=== PATIENT | female | born 1960 | race Caucasian/White ===

== ENCOUNTER → 2017-02-01 | Outpatient (CLI) | payer OTHER | LOC: FIMAGING 07:30 | PROVIDERS: ATTEND Physician Assistant | DX: Z12.31 Encounter for screening mammogram for malignant neoplasm of breast (principal); Z80.3 Family history of malignant neoplasm of breast | CPT/HCPCS: G0202 ==

== ENCOUNTER 2017-03-11 07:56 | Emergency (ER) | payer OTHER ==
[2017-03-11 08:02] VITALS: RESP 16; TEMP 98.2
--- NOTE | 2017-03-11 08:15 | EDPHY ---
H & P Stated Complaint: N/V/D Time Seen by Provider: 03/11/17 08:04 Source: Patient Exam Limitations: No limitations - Personal History LMP (Females 10-55): Post Menopausal Current Tetanus Diphtheria and Acellular Pertussis (TDAP): Yes - Medical/Surgical History Hx Asthma: No Hx Chronic Respiratory Disease: No Hx Diabetes: No Hx Cardiac Disease: No Hx Renal Disease: No Hx Cirrhosis: No Hx Alcoholism: No Hx HIV/AIDS: No Hx Splenectomy or Spleen Trauma: No Other PMH: DDD, HYPOTHYROID, DMII - Social History Smoking Status: Never smoked Constitutional: Initial Vital Signs Temperature (C) 36.8 C 03/11/17 07:57 Heart Rate 107 H 03/11/17 07:57 Respiratory Rate 16 03/11/17 07:57 Blood Pressure 125/90 H 03/11/17 07:57 O2 Sat (%) 92 03/11/17 07:57 O2 Delivery Mode Room Air Allergies/Adverse Reactions: No Known Allergies Allergy (Unverified 01/23/12 13:03) Home Medications: Medication Instructions Recorded Oxycodone 02/24/14 Oxycontin 02/24/14 Percocet 5/325 (RX) 02/24/14 Synthroid 02/24/14 Dapagliflozin Propanediol [Farxiga] 03/11/17 Medical Decision Making ED Course/Re-evaluation: CHIEF COMPLAINT: Diarrhea HISTORY OF PRESENT ILLNESS: The patient is a 56-year-old female presenting with ongoing diarrhea and abdominal cramping. The patient was started on a new DM2 medication called Farxiga 1 week ago. She has not been taking it consistently for the past week due to secondary abdominal cramping. She took the medication last night and has since had ongoing diarrhea and abdominal cramping. She reports she is in "gastrointestinal distress." The patient is concerned about dehydration from the ongoing diarrhea. She denies nausea, vomiting, or fever. REVIEW OF SYSTEMS: A 10 point review of systems was performed and is negative with the exception of the elements mentioned in the history of present illness. PHYSICAL EXAM: HR, BP, O2 Sat, RR. Temp noted General Appearance: Alert, well hydrated, appropriate, and non-toxic appearing. Head: Atraumatic without scalp tenderness or obvious injury Eyes: Pupils equal, round, reactive to light and accommodation, EOMI, no trauma , no injection. Nose: Atraumatic, no rhinorrhea, clear. Neck: Supple, 2+ carotid upstroke, nontender, no lymphadenopathy. Respiratory: No retractions, no distress, no wheezes, and no accessory muscle use. Lungs are clear to auscultation bilaterally. Cardiovascular: Regular rate and rhythm, no murmurs, rubs, or gallops. Bilateral carotid, radial, dorsalis pedis, and posterior tibial pulses intact. Good capillary refill all extremities. Gastrointestinal: Abdomen is soft, diffuse tenderness. Musculoskeletal: Normal active ROM of all extremities, atraumatic. Neurological: Alert, appropriate, and interactive. The patient has normal DTRs and non-focal cranial nerves, motor, sensory, and cerebellar exam. Skin: No rashes, good turgor, no nodules on palpation. Past medical history: Diabetes mellitus II, hypothyroid. Past surgical history: Denies. Family history: Noncontributory. Social history: . Lives in [place]. DIFFERENTIAL DIAGNOSIS: The differential diagnosis for the patient's abdominal pain included but was not limited to gastritis, diarrhea, ovarian cyst , pelvic inflammatory disease, ovarian torsion, urinary tract infection, cholecystitis, and appendicitis. MEDICAL DECISION MAKING: Patient presents with ongoing diarrhea since starting a new DM 2 medication called Farxiga. She has associated abdominal cramping. On abdominal examination she has diffuse tenderness. The patient is afebrile, vitals are otherwise stable. IV was established. Plan for IV fluids and Zofran. Her lab work is unremarkable. She has had multiple episodes of diarrhea while in the ED but is feeling better after fluids and Zofran. The patient is safe for discharge home. - Data Points Laboratory Results: Laboratory Results 03/11/17 08:20 03/11/17 08:20 Sodium 143 mEq/L mEq/L (135-145) Potassium 4.9 mEq/L mEq/L (3.5-5.2) Chloride 106 mEq/L mEq/L (97-110) Carbon Dioxide 19 mEq/l L mEq/l (22-31) Anion Gap 18 mEq/L H mEq/L (8-16) BUN 19 mg/dL mg/dL (7-23) Creatinine 1.1 mg/dL H mg/dL (0.6-1.0) Estimated GFR 52 Glucose 137 mg/dL H mg/dL (70-100) Calcium 10.7 mg/dL H mg/dL (8.5-10.4) Phosphorus 2.6 mg/dL mg/dL (2.5-4.5) Medications Given: Discontinued Medications Sodium Chloride (Ns) 1,000 mls @ 0 mls/hr IV ONCE ONE PRN Reason: Wide Open Stop: 03/11/17 08:26 Last Admin: 03/11/17 08:34 Dose: 1,000 mls Ondansetron HCl (Zofran) 4 mg IVP EDNOW ONE Stop: 03/11/17 08:26 Last Admin: 03/11/17 08:34 Dose: 4 mg Departure - Departure Disposition: Home, Routine, Self-Care Clinical Impression: Diarrhea Qualifiers: Diarrhea type: functional diarrhea Qualified Code(s): K59.1 - Functional diarrhea Medication reaction Qualifiers: Encounter type: initial encounter Qualified Code(s): T88.7XXA - Unspecified adverse effect of drug or medicament, initial encounter Condition: Good Instructions: Acute Diarrhea (ED) Additional Instructions: Stop taking your Farxiga. Please follow up with your primary care physician to discuss other diabetes medications. Drink plenty of fluids. Return to the Emergency Department with new or worsening symptoms. Referrals: Danielle Tesfaye PA [Primary Care Provider] - As per Instructions Report Scribed for: Placido Perla Report Scribed by: Alissa Hernandez Date of Report: 03/11/17 Time of Report: 09:40
[2017-03-11] MEDS ORDERED: ONDANSETRON 4 MG/2 ML VIAL ONE (08:23)
[2017-03-11] MEDS ORDERED: ONDANSETRON 4 MG/2 ML VIAL IVP ONE (08:25)
[2017-03-11] MEDS ORDERED: NS 1,000 ML IV ONE (08:25)
[2017-03-11 09:45] VITALS: BP 127/85; PULSE 77; O2SAT 96
== END 2017-03-11 09:45 | disposition home or self-care (01) ==
PROC: 3E0337Z Introduction of Electrolytic and Water Balance Substance into Peripheral Vein, Percutaneous Approach (ICD-10-PCS; principal; 2017-03-11)
DX: K59.1 Functional diarrhea (principal); T38.3X5A Adverse effect of insulin and oral hypoglycemic [antidiabetic] drugs, initial encounter; E11.9 Type 2 diabetes mellitus without complications; E86.9 Volume depletion, unspecified
CPT/HCPCS: 96374; J2405

== ENCOUNTER → 2018-02-21 | Outpatient (CLI) | payer OTHER | LOC: FIMAGING 12:04 | PROVIDERS: ATTEND Physician Assistant | DX: Z12.31 Encounter for screening mammogram for malignant neoplasm of breast (principal); Z80.3 Family history of malignant neoplasm of breast ==